=== PATIENT | female | born 1985 | race Caucasian/White ===

== ENCOUNTER 2020-04-16 06:20 | Emergency (ER) | payer MEDICAID, OTHER ==
[~2020-04-16] VITALS: Ht 167.6 cm; Wt 87.0 kg
[~2020-04-16 06:20] MED LIST: FERR-63 PO; PREN-88 PO
[2020-04-16] MEDS ORDERED: LIDOCAINE 1%/EPI 1:100,000 10 ML VIAL IJ ONE (07:15)
[2020-04-16 09:09] VITALS: BP 168/98
== END 2020-04-16 09:10 | disposition home or self-care (01) ==
LOC: ER 06:20
DX: S61.012A Laceration without foreign body of left thumb without damage to nail, initial encounter (principal); W26.8XXA Contact with other sharp object(s), not elsewhere classified, initial encounter; Y93.89 Activity, other specified; Y92.89 Other specified places as the place of occurrence of the external cause
CPT/HCPCS: 12001; 99282; J3490

== ENCOUNTER 2021-06-29 04:54 | Emergency (ER) | payer MEDICAID ==
[~2021-06-29] VITALS: Ht 167.6 cm; Wt 82.0 kg
[2021-06-29 05:13] VITALS: BP 175/108
== END 2021-06-29 05:57 | disposition left against medical advice (07) ==
LOC: ER 04:54
DX: S09.8XXA Other specified injuries of head, initial encounter (principal); M54.2 Cervicalgia; W22.8XXA Striking against or struck by other objects, initial encounter; Y93.89 Activity, other specified; Y92.013 Bedroom of single-family (private) house as the place of occurrence of the external cause
CPT/HCPCS: 99281

== ENCOUNTER 2021-11-15 21:38 | Emergency (ER) | payer MEDICAID ==
[~2021-11-15] VITALS: Ht 167.6 cm; Wt 86.0 kg
[2021-11-15] MEDS ORDERED: HYDROCODONE/ACETAMINOPHEN 5/325MG TABLET PO ONE (23:15)
[2021-11-16] MEDS ORDERED: KETOROLAC 60MG/2ML VIAL IM ONE (00:45)
[2021-11-16 01:54] VITALS: BP 179/113
[2021-11-16] MEDS ORDERED: NAPR-681 MT (02:16)
== END 2021-11-16 02:59 | disposition home or self-care (01) ==
LOC: ER 21:38
DX: S82.144A Nondisplaced bicondylar fracture of right tibia, initial encounter for closed fracture (principal); X50.1XXA Overexertion from prolonged static or awkward postures, initial encounter; Y93.89 Activity, other specified; Y92.018 Other place in single-family (private) house as the place of occurrence of the external cause
CPT/HCPCS: 73562; 73610; 81025; 96372; 99284; J1885

== ENCOUNTER 2022-04-01 00:36 | Emergency (ER) | payer MEDICAID ==
[~2022-04-01] VITALS: Ht 170.2 cm; Wt 86.0 kg
[~2022-04-01 00:36] MED LIST changes: +NAPR-681 MT
[2022-04-01 00:48] VITALS: BP 178/107
== END 2022-04-01 08:12 | disposition left against medical advice (07) ==
LOC: ER 00:36
DX: Z53.21 Procedure and treatment not carried out due to patient leaving prior to being seen by health care provider (principal)

== ENCOUNTER 2022-08-19 06:25 | Emergency (ER) | payer MEDICAID ==
[~2022-08-19] VITALS: Ht 167.6 cm; Wt 82.0 kg
[2022-08-19 06:32] VITALS: BP 156/107
== END 2022-08-19 08:38 | disposition left against medical advice (07) ==
LOC: ER 06:25
DX: Z53.21 Procedure and treatment not carried out due to patient leaving prior to being seen by health care provider (principal)
CPT/HCPCS: 81025

== ENCOUNTER 2023-07-03 21:40 | Emergency (ER) | payer MEDICAID ==
[~2023-07-03] VITALS: Ht 170.2 cm; Wt 81.6 kg
[2023-07-03 21:47] VITALS: BP 160/109; PULSE 120; RESP 16; TEMP 98.2; O2SAT 99
== END 2023-07-04 00:45 | disposition left against medical advice (07) ==
LOC: ER 21:40
DX: Z53.21 Procedure and treatment not carried out due to patient leaving prior to being seen by health care provider (principal)
CPT/HCPCS: 99281

== ENCOUNTER 2024-12-26 18:38 | Emergency (ER) | payer MEDICAID ==
[~2024-12-26] VITALS: Ht 165.1 cm; Wt 91.0 kg
[2024-12-26 18:51] VITALS: O2SAT 97
[2024-12-26] MEDS ORDERED: CEPH500T MT (19:20)
[2024-12-26] MEDS ORDERED: SULF1TAB48 MT (19:20)
[2024-12-26 20:09] VITALS: BP 189/122; PULSE 121; RESP 26; TEMP 37.6; O2SAT 98
[2024-12-26] MEDS: CEPHALEXIN 250MG CAPSULE PO STA (20:11)
[2024-12-26] MEDS: SULFAMETHOXAZOLE/TRIMETHOPRIM 800/160MG TABLET PO ONE (20:11)
== END 2024-12-26 20:27 | disposition home or self-care (01) ==
LOC: ER 18:38
DX: L03.211 Cellulitis of face (principal); I10 Essential (primary) hypertension; Z79.899 Other long term (current) drug therapy; Z79.1 Long term (current) use of non-steroidal anti-inflammatories (NSAID)
CPT/HCPCS: 93005; 99283

== ENCOUNTER 2024-12-29 02:02 | Emergency (ER) | payer MEDICAID ==
[~2024-12-29] VITALS: Ht 167.6 cm; Wt 82.0 kg
[~2024-12-29 02:02] MED LIST changes: +CEPH500T MT; +SULF1TAB48 MT
[2024-12-29 02:08] VITALS: O2SAT 99
[2024-12-29 02:11] VITALS: BP 181/114; PULSE 126; RESP 18; TEMP 36.8; O2SAT 99
[2024-12-29] MEDS: KETOROLAC 15MG/ML VIAL IM ONE (03:04)
[2024-12-29 03:22] LABS: BASOPHILS % 0.5 % (0.0-2.0); DIFFERENTIAL COMMENT 0; EOSINOPHILS % 7.1 % (0.0-5.0); HEMATOCRIT. 38.3 % (36.0-48.0); HEMOGLOBIN. 12.5 g/dL (12.0-16.0); MEAN CORPUSCULAR HEMOGLOBIN 24.1 pg (28.0-32.0); MEAN CORPUSCULAR HGB CONC 32.5 g/dL (31.0-37.0); MEAN PLATELET VOLUME 7.6 fl (7.4-10.4); MONOCYTES % 8.1 % (2.0-8.0); NEUTROPHILS % 65.3 % (40.0-76.0); PLATELET 354 x1000/uL (130-400); RED BLOOD CELL COUNT 5.18 mill/uL (4.2-5.4); WHITE BLOOD COUNT 10.3 x1000/uL (4.5-11.0)
[2024-12-29 03:29] LABS: CHLORIDE 103 mEq/L (98-107); POTASSIUM 3.9 mEq/L (3.5-5.1); SODIUM 136 mEq/L (136-145)
[2024-12-29 03:30] LABS: CALCIUM 9.5 mg/dL (8.7-10.4); CARBON DIOXIDE 25 mEq/L (21-32)
[2024-12-29 03:35] LABS: CREATININE 0.8 mg/dL (0.6-1.0); GLUCOSE 164 mg/dL (70-105); UREA NITROGEN BLOOD 10 mg/dL (9-23)
[2024-12-29] MEDS: SODIUM CHLORIDE 0.9% 1,000 ML IV ONE (03:40)
[2024-12-29] MEDS ORDERED: NAPR-1176 MT (04:56)
== END 2024-12-29 05:04 | disposition home or self-care (01) ==
LOC: ER 02:02
DX: L03.211 Cellulitis of face (principal); I10 Essential (primary) hypertension; Z79.899 Other long term (current) drug therapy
CPT/HCPCS: 99283; 96360; 80048; 83605; 85025; 87040; 36415; 96372; J1885; J7030

== ENCOUNTER 2025-05-26 18:57 | Emergency (ER) | payer MEDICAID ==
[~2025-05-26] VITALS: Ht 172.7 cm; Wt 100.0 kg
[~2025-05-26 18:57] MED LIST changes: +NAPR-1176 MT
[2025-05-26 19:03] VITALS: O2SAT 100
[2025-05-26] MEDS: ACETAMINOPHEN 500MG TABLET PO ONE (20:27)
[2025-05-26] MEDS: MORPHINE SULFATE 4 MG/ML INJ (FOR IV/IM USE) IV ONE (20:27)
[2025-05-26] MEDS: SODIUM CHLORIDE 0.9% 1,000 ML IV ONE (20:27)
[2025-05-26 20:44] LABS: BASOPHILS % 0.4 % (0.0-2.0); EOSINOPHILS % 2.4 % (0.0-5.0); HEMATOCRIT. 38.3 % (36.0-48.0); HEMOGLOBIN. 12.5 g/dL (12.0-16.0); LYMPHOCYTES % 18.4 % (20.0-50.0); MEAN PLATELET VOLUME 7.5 fl (7.4-10.4); MONOCYTES % 7.1 % (2.0-8.0); NEUTROPHILS % 71.7 % (40.0-76.0); PLATELET 345 x1000/uL (130-400); RED BLOOD CELL COUNT 5.23 mill/uL (4.2-5.4); RED CELL DISTRIBUTION WIDTH 15.1 % (11.6-14.6)
[2025-05-26 20:47] LABS: INR 1.0
[2025-05-26 20:51] LABS: CREATININE 0.7 mg/dL (0.6-1.0)
[2025-05-26 20:52] LABS: UREA NITROGEN BLOOD 7 mg/dL (9-23)
[2025-05-26 20:53] LABS: ASPARTATE AMINOTRANSFERASE 25 IU/L (<34)
[2025-05-26 20:54] LABS: BILIRUBIN DIRECT < 0.1 mg/dL (<=3.0); BILIRUBIN TOTAL 0.3 mg/dL (0.1-1.0); PROTEIN TOTAL 6.7 g/dL (6.0-8.3)
[2025-05-26 21:23] LABS: B-HCG QUANTITATIVE 1778 mIU/mL (<6)
[2025-05-26 23:00] VITALS: BP 146/89; PULSE 94; RESP 18; TEMP 36.7; O2SAT 100
== END 2025-05-26 23:30 | disposition home or self-care (01) ==
LOC: ER 18:57
DX: O03.9 Complete or unspecified spontaneous abortion without complication (principal); R10.20 Pelvic and perineal pain unspecified side; Z3A.09 9 weeks gestation of pregnancy
CPT/HCPCS: 99285; 96374; 76801; 96361; 80076; 80048; 84702; 85025; 85610; 85730; 86850; 86900; 86901; 36415; J2270; J7030

== ENCOUNTER 2025-06-10 02:50 | Emergency (ER) | payer MEDICAID ==
[~2025-06-10] VITALS: Ht 162.6 cm; Wt 82.0 kg
[2025-06-10 03:02] VITALS: TEMP 36.9; O2SAT 100
[2025-06-10] MEDS: MORPHINE SULFATE 4 MG/ML INJ (FOR IV/IM USE) IV ONE (04:00)
[2025-06-10] MEDS: SODIUM CHLORIDE 0.9% 1,000 ML IV ONE ×2 (04:01→05:36)
[2025-06-10 04:05] LABS: BASOPHILS % 0.4 % (0.0-2.0); EOSINOPHILS % 1.8 % (0.0-5.0); HEMATOCRIT. 32.9 % (36.0-48.0); HEMOGLOBIN. 10.6 g/dL (12.0-16.0); LYMPHOCYTES % 12.2 % (20.0-50.0); MEAN PLATELET VOLUME 7.8 fl (7.4-10.4); MONOCYTES % 8.4 % (2.0-8.0); NEUTROPHILS % 77.2 % (40.0-76.0); PLATELET 399 x1000/uL (130-400); RED BLOOD CELL COUNT 4.50 mill/uL (4.2-5.4); RED CELL DISTRIBUTION WIDTH 14.6 % (11.6-14.6)
[2025-06-10 04:16] LABS: CREATININE 0.8 mg/dL (0.6-1.0); UREA NITROGEN BLOOD 8 mg/dL (9-23)
[2025-06-10 04:17] LABS: B-HCG QUANTITATIVE 20 mIU/mL (<6)
[2025-06-10 04:18] LABS: ASPARTATE AMINOTRANSFERASE 34 IU/L (<34); BILIRUBIN DIRECT 0.1 mg/dL (<=3.0); BILIRUBIN TOTAL 0.4 mg/dL (0.1-1.0); PROTEIN TOTAL 7.4 g/dL (6.0-8.3)
[2025-06-10 04:31] LABS: INR 1.0
[2025-06-10 04:50] LABS: HCG SCREEN INDETERMINATE
[2025-06-10 05:06] LABS: CLARITY URINE CLEAR (CLEAR); COLOR URINE YELLOW (YELLOW); GLUCOSE URINE NEGATIVE (NEGATIVE); KETONES URINE NEGATIVE (NEGATIVE); LEUKOCYTE ESTERASE URINE TRACE (NEGATIVE); NITRITE URINE NEGATIVE (NEGATIVE); OCCULT BLOOD URINE TRACE (NEGATIVE); PH URINE 6.0 (4.5-8.0); PROTEIN URINE TRACE (NEGATIVE); SPECIFIC GRAVITY URINE 1.015 (1.005-1.030); UROBILINOGEN URINE 0.2 E.U./dL (0.2-1.0)
[2025-06-10 06:44] LABS: SQUAMOUS EPITHELIAL CELL URINE FEW /lpf (RARE/1+)
[2025-06-10 06:45] LABS: BACTERIA URINE NONE SEEN; RBC URINE 0-2 /hpf (0-2)
[2025-06-10] MEDS ORDERED: NITR-87 MT (06:51)
[2025-06-10] MEDS ORDERED: IBUP-2030 MT (06:51)
[2025-06-10 07:00] VITALS: O2SAT 100
[2025-06-10 07:10] VITALS: BP 153/103; PULSE 116; RESP 12
[2025-06-10] MEDS: KETOROLAC 15MG/ML VIAL IV NR (07:10)
[2025-06-10] MEDS: POTASSIUM CHLORIDE 20MEQ TABLET SR PO NR (07:11)
[2025-06-10] MEDS: NITROFURANTOIN 100MG M/M CAPSULE PO NR (07:11)
== END 2025-06-10 07:25 | disposition home or self-care (01) ==
LOC: ER 02:50 → CMPBEDREQ 08:23
DX: R10.32 Left lower quadrant pain (principal); Z79.1 Long term (current) use of non-steroidal anti-inflammatories (NSAID)
CPT/HCPCS: 99285; 74176; 96374; 76830; 76856; 96361; 96375; 80076; 80048; 81003; 84703; 84702; 83690; 85025; 85610; 85730; 86850; 86900; 86901; 36415; J1885; J2270; J7030